=== PATIENT | female | born 1965 | race Caucasian/White ===

== ENCOUNTER → 2016-06-29 | Day surgery (SDC) | payer OTHER ==
[~2016-06-29] VITALS: Ht 162.6 cm; Wt 66.9 kg
[~2016-06-29] MED LIST: ACETAMINOPHEN 1000 MG/100 ML VIAL IV ONE; CHLORHEXIDINE GLUCONATE 2 % 1 PACK (2 CLOTHS) TOPICAL PRN; DICLOFENAC SODIUM 37.5 MG/ML VIAL IV PUSH ONE; DO NOT ADM ANY ANTICOAGULANT DRUGS PRN; ESTROGENS CONJUGATED VAG CREA 15 APPL/30 GM TUBE ONE; FAMOTIDINE 20 MG/2 ML VIAL ONE; FERRIC SUBSULFATE 8 ML TOP SOLN ONE; INSULIN HUMAN REGULAR 1,000 UNITS/10 ML VIAL SQ PRN; KETOROLAC TROMETHAMINE 30 MG/ML (IVP) VIAL IV PUSH PRN; KETOROLAC TROMETHAMINE 30 MG/ML (IVP) VIAL ONE; LACTATED RINGER'S 1000 ML IV PRN; LIDOCAINE 1%/EPINEPHrine 1:100,000 SOLN 50 ML VIAL ONE; METOPROLOL TARTRATE 25 MG TAB PO PRN; MIDAZOLAM HCL 2 MG/2 ML VIAL ONE; ONDANSETRON HCL 4 MG/2 ML VIAL IV PUSH ONE; POVIDONE IODINE 5% (ANTISEPSIS KIT) 4 APPLICATIONS EACH NARE PRN; PROPOFOL 200 MG/20 ML AMP IV ONE; SODIUM CHLORID 0.9% 500 ML IV PRN; SODIUM CHLORIDE 0.9% INJ 100 ML ONE; VASOPRESSIN INJ 20 UNITS/ML VIAL ONE; VITA500T49 PO; ceFAZolin INJ 1,000 MG VIAL ONE; oxyCODONE/ACETAMINOPHEN 5 MG/325 MG TAB PO PRN
[2016-06-29 11:13] VITALS: BP 119/66; PULSE 54; RESP 20; TEMP 97.5; O2SAT 97
[2016-06-29 16:50] VITALS: BP 114/65; PULSE 48; RESP 20; TEMP 97.5; O2SAT 99
--- NOTE | 2016-06-29 17:24 | MP ---
cc: MD GURDEEP,LEILANI CÁRDENAS MD, MD,KELBY DATE OF SURGERY 06/29/16 PREOPERATIVE DIAGNOSIS 1. High-grade cervical dysplasia. 2. Left vulvar mass. POSTOPERATIVE DIAGNOSIS 1. High-grade cervical dysplasia. 2. Left vulvar mass. PROCEDURE 1. Exam under anesthesia, 2. Cold knife conization of the cervix, 3. Fractional dilation, curettage 4. Excision of left vulvar mass. SURGEON Trudy Weeks MD [employer] [place] office services assistant laryngeal mask anesthesia ESTIMATED BLOOD LOSS 20 mL HISTORY This is a 51-year-old female abnormal Pap smear led to cervix biopsies, endocervical curetting which showed abnormal atypical cells consistent with high-grade dysplasia extending into the endocervical canal. She was counseled regarding these findings and presents now for further evaluation, conization and to evaluate the epithelia lining of the uterus to clarify the origin and extent of the abnormality. Additionally, for least a year she has noticed a gradually increasing smooth-walled mobile solid appearing mass in the left vulva. On office exam, it measured approximately 6 cm. It seems at little bit smaller on exam today, perhaps less edema. CAT scan measured it at 2.8 cm. Once it was resected from apex to apex, it measures approximately 4 cm. Nevertheless, she was counseled regarding these findings and requests having that excised as well. FINDINGS The findings on exam under anesthesia are as this described and clinical finding. The cervix is circumferential. It is prominent but grossly is normal. After application of dilute acetic acid, there are some acetowhite epithelial changes and some subtle vascular changes in the transformation zone extending toward the 12 o'clock position of the cervix. There is small to moderate amount of tissue obtained from the endocervical curetting and there is a small little polypoid fragments obtained from endometrial curetting. On the vulva, the mobile masses is on the left vulva extending from the level of the 12 o'clock position to the 3 o'clock position, smooth-walled, mobile and as described above. Once removed. it was solid, encapsulated and a margin of dissection was able to be identified such that the entire mass was removed. PROCEDURE IN DETAIL The patient taken to the operating room placed in dorsal lithotomy position after laryngeal mask anesthesia was administered. Time-out was undertaken. The patient was identified by sight recognition and hospital ID bracelet and the proposed procedure was reviewed and confirmed. Exam under anesthesia was performed with findings as described above. Prepped and draped in sterile fashion. Dilute acetic acid applied and she was reexamined with findings as described above. This cervix was grasped. Lidocaine epinephrine injected circumferentially. 0 Vicryl sutures were placed at the 3 o'clock and 9 o'clock position, tied securely for hemostasis and countertraction. The axis of the cervix and endometrium was defined using a uterine sound and a scalpel was used to carry out conization including all areas of abnormality, abnormal appearance at the 12 o'clock position angling in toward the endocervical canal. Finished dissection with sharp dissection and the specimen was removed as cervix conization for permanent histopathologic analysis. Endocervical curetting was then performed with multiple passes circumferentially. The tissue was combined and labeled endocervical curetting. The cervix was then dilated with gradual dilators and then endometrial curetting was performed. The uterine cavity sounded to 8 cm. Multiple passes circumferentially. Most of the surfaces of the endometrium were gritty with small to moderate amount of tissue obtained as described above. The cone bed was cauterized and then rendered hemostatic completely with topical Monsel's solution. The instrument was removed and the sites were rendered hemostatic on the cervix. Attention was directed to the external genitalia. Surgical marker was used overlying the mass. Lidocaine epinephrine was injected. Sharp dissection was carried down to the level of the mass and then sharp dissection was carried out circumferentially until the mass was mobilized and the posterior connections were taken down with cautery and the mass was removed in its entirety. There were few superficial disruptions to the skin along the left margin and so this was reexcised and this fragmented skin was discarded leaving a clean site for primary closure. The closure was completed in layers with interrupted 2-0 Vicryl sutures in the subcutaneous tissue until the skin edges were in close proximity without tension and then the skin edges were closed with interrupted 3-0 Vicryl sutures which rendered the skin completely hemostatic, well-approximated without tension and satisfactory cosmetic result. Exam confirmed the cervix site was hemostatic. There were no remaining foreign objects in the vagina. Preliminary and final counts were correct. She was returned to dorsal supine position and was pending reversal of anesthesia when I left the operating room to precede her to the Post Anesthesia Care Unit. MD IRLANDA Dutta /2:51 PM /5:07 PM
== END | disposition home or self-care (01) ==
LOC: HSDC 10:34
PROVIDERS: ATTEND Obstetrics & Gynecology Gynecologic Oncology
DX: D06.0 Carcinoma in situ of endocervix (principal); L72.0 Epidermal cyst
CPT/HCPCS: 00940; 11424; 57520; 86850; 86900; 86901; 88304; 88305; J0131; J0690; J1130; J1885; J2250; J2405; J3010